=== PATIENT | male | born 1960 | race Hispanic/Latino ===

== ENCOUNTER 2022-03-13 21:35 | Inpatient (IN) | payer OTHER ==
[~2022-03-13] VITALS: Ht 160 cm; Wt 69.8 kg
[2022-03-13 22:35] LABS: BASOPHILS % (AUTO) 0.2 % (0.0-5.0); EOSINOPHILS % (AUTO) 1.9 % (0.0-8.0); HEMATOCRIT 30.3 % (42-54); LYMPHOCYTES % (AUTO) 8.1 % (21.0-51.0); MEAN CORPUSCULAR HEMOGLOBIN 30.1 pg (27.0-33.0); MEAN CORPUSCULAR HGB CONC 34.3 g/dL (32.0-36.0); MEAN CORPUSCULAR VOLUME 87.6 fL (79-99); MONOCYTES % (AUTO) 9.6 % (3.0-13.0); NEUTROPHILS % (AUTO) 79.8 % (40.0-77.0); PLATELET COUNT (AUTO) 206 K/uL (130-400); RED BLOOD CELL COUNT(AUTO) 3.46 MIL/uL (4.50-6.20); RED CELL DISTRIBUTION WIDTH 13.3 % (11.0-15.5); WHITE BLOOD COUNT (AUTO) 9.9 K/uL (4.8-10.8)
[2022-03-13 22:45] LABS: CREATININE 1.3 mg/dL (0.5-1.5); POTASSIUM 5.6 mmol/L (3.5-5.1)
[2022-03-13 22:50] LABS: ALBUMIN 2.9 g/dL (3.5-5.0); TOTAL PROTEIN, SERUM 6.8 g/dL (6.0-8.3)
[2022-03-13 23:43] LABS: APPEARANCE,URINE CLEAR (CLEAR); BILIRUBIN,URINE NEGATIVE (NEGATIVE); COLOR,URINE YELLOW (YELLOW); GLUCOSE, URINE (UA) NEGATIVE (NEGATIVE); KETONES,URINE NEGATIVE (NEGATIVE); LEUKOCYTE ESTERASE ,URINE NEGATIVE (NEGATIVE); NITRATE,URINE NEGATIVE (NEGATIVE); OCCULT BLOOD,URINE TRACE-INTACT (NEGATIVE); PROTEIN,URINE 30 mg/dL (NEGATIVE); UROBILINOGEN,URINE 0.2 mg/dL (0.2-1.0)
[2022-03-14] MEDS ORDERED: ZOSYN 3.375GM +NS 50ML IV SCH
[2022-03-14 00:18] LABS: BACTERIA,URINE None Seen /HPF (None Seen); RBC,URINE 0-1 /HPF (0-1); SQUAMOUS EPITHELIAL CELL,UR Rare /HPF (0-2); WBC,URINE None Seen /HPF (0-1)
[2022-03-14] MEDS ORDERED: ONDANSETRON 4MG INJ ONE (00:30)
[2022-03-14] MEDS ORDERED: MORPHINE 4 MG SYG ONE (00:30)
[2022-03-14 02:10] VITALS: BP 129/81
[2022-03-14] MEDS ORDERED: VANCOMYCIN PROTOCOL PER PHARMACY IV PRN (02:30)
[2022-03-14] MEDS ORDERED: ACETAMINOPHEN 325 MG TAB PO PRN (02:30)
[2022-03-14] MEDS ORDERED: VANCOMYCIN 1G/250ML KIT 250 ML IV SCH (02:30)
[2022-03-14] MEDS ORDERED: ONDANSETRON 4MG INJ IV PRN (02:30)
[2022-03-14] MEDS: CEFEPIME HCL 2 GM VIAL IVP SCH ×2 (03:26→15:50)
[2022-03-14] MEDS: 0.9%NACL 1000ML 1,000 ML IV SCH ×2 (03:26→15:50)
[2022-03-14] MEDS: MORPHINE 4 MG SYG IV PRN (05:30)
[2022-03-14 05:57] LABS: BASOPHILS % (AUTO) 0.3 % (0.0-5.0); EOSINOPHILS % (AUTO) 2.2 % (0.0-8.0); HEMATOCRIT 28.4 % (42-54); LYMPHOCYTES % (AUTO) 17.5 % (21.0-51.0); MEAN CORPUSCULAR HEMOGLOBIN 29.8 pg (27.0-33.0); MEAN CORPUSCULAR HGB CONC 33.5 g/dL (32.0-36.0); MONOCYTES % (AUTO) 10.2 % (3.0-13.0); NEUTROPHILS % (AUTO) 69.1 % (40.0-77.0); PLATELET COUNT (AUTO) 198 K/uL (130-400); RED BLOOD CELL COUNT(AUTO) 3.19 MIL/uL (4.50-6.20); RED CELL DISTRIBUTION WIDTH 13.2 % (11.0-15.5); WHITE BLOOD COUNT (AUTO) 9.8 K/uL (4.8-10.8)
[2022-03-14 06:04] LABS: CREATININE 1.3 mg/dL (0.5-1.5); MAGNESIUM 1.5 mg/dL (1.80-2.40); PHOSPHORUS 3.9 mg/dL (2.5-4.9); POTASSIUM 4.8 mmol/L (3.5-5.1)
[2022-03-14 06:10] LABS: HEMOGLOBIN A1C 12.9 % (4.0-6.0)
[2022-03-14] MEDS ORDERED: MAGNESIUM 2GM PREMIX 50ML 50 ML IV PRN (06:30)
[2022-03-14 07:00] VITALS: BP 112/61
[2022-03-14] MEDS ORDERED: GABA300S PO (08:38)
[2022-03-14] MEDS ORDERED: PIOG15TA66 PO (08:39)
[2022-03-14] MEDS ORDERED: METF-446 PO (08:40)
[2022-03-14] MEDS ORDERED: AEC81 PO (08:40)
[2022-03-14] MEDS: FAMOTIDINE 20MG VIAL IV SCH (09:54)
[2022-03-14] MEDS: MORPHINE 2 MG SYG IV PRN ×2 (10:11→21:37)
[2022-03-14 11:00] VITALS: BP 140/82
[2022-03-14 15:00] VITALS: BP 146/81
[2022-03-14] MEDS: GABAPENTIN 300 MG CAPSULE PO SCH ×2 (15:51→21:27)
[2022-03-14 20:20] VITALS: BP 143/77
[2022-03-14] MEDS: VANCOMYCIN 1G/250ML KIT 250 ML IV SCH (21:27)
[2022-03-15] VITALS (20 sets, daily range): BP systolic 118–149; BP diastolic 62–82
[2022-03-15] MEDS: MORPHINE 4 MG SYG IV PRN ×2 (02:56→20:39)
[2022-03-15] MEDS: CEFEPIME HCL 2 GM VIAL IVP SCH ×2 (04:16→13:46)
[2022-03-15 05:14] LABS: BASOPHILS % (AUTO) 0.4 % (0.0-5.0); EOSINOPHILS % (AUTO) 2.1 % (0.0-8.0); HEMATOCRIT 29.9 % (42-54); LYMPHOCYTES % (AUTO) 10.6 % (21.0-51.0); MEAN CORPUSCULAR HGB CONC 33.8 g/dL (32.0-36.0); MEAN CORPUSCULAR VOLUME 88.7 fL (79-99); MONOCYTES % (AUTO) 9.3 % (3.0-13.0); NEUTROPHILS % (AUTO) 77.2 % (40.0-77.0); PLATELET COUNT (AUTO) 214 K/uL (130-400); RED BLOOD CELL COUNT(AUTO) 3.37 MIL/uL (4.50-6.20); RED CELL DISTRIBUTION WIDTH 13.2 % (11.0-15.5); WHITE BLOOD COUNT (AUTO) 9.6 K/uL (4.8-10.8)
[2022-03-15 05:32] LABS: INR 1.06 (0.85-1.15); PROTHROMBIN TIME 11.5 SEC (9.6-11.6)
[2022-03-15 05:33] LABS: CREATININE 1.2 mg/dL (0.5-1.5)
[2022-03-15] MEDS: ASPIRIN 81 MG EC TAB PO SCH (09:00)
[2022-03-15] MEDS: FAMOTIDINE 20MG VIAL IV SCH (09:00)
[2022-03-15] MEDS: GABAPENTIN 300 MG CAPSULE PO SCH ×3 (09:00→20:31)
[2022-03-15] MEDS ORDERED: LIDOCAINE HCL 400MG/20ML VIAL ONE (09:09)
[2022-03-15] MEDS ORDERED: BUPIVACAINE/PF 0.5% 10ML VIAL ONE (09:09)
[2022-03-15] MEDS ORDERED: PROPOFOL 10 MG/ML 20ML VIAL IV ONE (09:18)
[2022-03-15] MEDS ORDERED: MIDAZOLAM HCL 1 MG/ML 2ML VIAL ONE (09:18)
[2022-03-15] MEDS ORDERED: FENTANYL CITRATE PF 50 MCG/1 ML 2ML VIAL ONE ×2 (09:18→10:46)
[2022-03-15] MEDS ORDERED: LIDOCAINE HCL 1% 10 ML VIAL ONE (09:22)
[2022-03-15] MEDS: 0.9%NACL 1000ML 1,000 ML IV SCH (11:20)
[2022-03-15] MEDS ORDERED: INSULIN HUMULIN R 100 UNIT/ML 3ML SQ SCH (12:00)
[2022-03-15] MEDS: VANCOMYCIN 1G/250ML KIT 250 ML IV SCH (20:30)
[2022-03-15] MEDS: INSULIN HUMULIN R 100 UNIT/ML 3ML SQ SCH (22:19)
[2022-03-16] MEDS: MORPHINE 4 MG SYG IV PRN ×2 (02:43→08:18)
[2022-03-16] MEDS: CEFEPIME HCL 2 GM VIAL IVP SCH ×2 (02:46→13:23)
[2022-03-16 03:41] VITALS: BP 132/76
[2022-03-16] MEDS: INSULIN HUMULIN R 100 UNIT/ML 3ML SQ SCH ×4 (06:19→20:18)
[2022-03-16 08:00] VITALS: BP 139/85
[2022-03-16] MEDS: FAMOTIDINE 20MG VIAL IV SCH (08:03)
[2022-03-16] MEDS: GABAPENTIN 300 MG CAPSULE PO SCH ×3 (08:03→20:10)
[2022-03-16] MEDS: ASPIRIN 81 MG EC TAB PO SCH (08:04)
[2022-03-16 09:19] LABS: HEMATOCRIT 30.8 % (42-54); MEAN CORPUSCULAR HEMOGLOBIN 29.7 pg (27.0-33.0); MEAN CORPUSCULAR HGB CONC 34.1 g/dL (32.0-36.0); RED BLOOD CELL COUNT(AUTO) 3.54 MIL/uL (4.50-6.20); RED CELL DISTRIBUTION WIDTH 12.8 % (11.0-15.5); WHITE BLOOD COUNT (AUTO) 10.4 K/uL (4.8-10.8)
[2022-03-16 09:22] LABS: ALBUMIN 2.4 g/dL (3.5-5.0); POTASSIUM 4.6 mmol/L (3.5-5.1)
[2022-03-16] MEDS: KETOROLAC 15MG/ML VIAL (15MG/ML) IV PRN (10:58)
[2022-03-16] MEDS: HYDROMORPHONE 0.5 MG SYG (0.5MG/0.5ML) IVP PRN ×2 (11:09→20:10)
[2022-03-16 11:19] VITALS: BP 142/81
[2022-03-16] MEDS ORDERED: INSULIN HUMULIN 70/30 100 UNIT/ML 3ML SQ SCH (13:00)
[2022-03-16] MEDS ORDERED: DIPH,PERTUSS(ACELL),TET VAC/PF 0.5 ML VIAL IM SCH (13:30)
[2022-03-16] MEDS: INSULIN GLARGINE 100 UNITS/ML 10 ML VIAL SQ SCH (13:34)
[2022-03-16 16:00] VITALS: BP 132/73
[2022-03-16] MEDS ORDERED: CHLORPROMAZINE HCL 25 MG/ML 1ML AMP IM PRN (16:30)
[2022-03-16] MEDS: VANCOMYCIN 1G/250ML KIT 250 ML IV SCH (20:09)
[2022-03-16 20:19] VITALS: BP 133/76
[2022-03-16] MEDS ORDERED: INSULIN GLARGINE 100 UNITS/ML 10 ML VIAL SQ SCH (21:00)
[2022-03-16 23:19] VITALS: BP 130/68
[2022-03-17] MEDS: CEFEPIME HCL 2 GM VIAL IVP SCH ×2 (02:12→13:19)
[2022-03-17 02:34] VITALS: BP 135/65
[2022-03-17] MEDS: KETOROLAC 15MG/ML VIAL (15MG/ML) IV PRN ×2 (05:38→20:56)
[2022-03-17] MEDS: INSULIN HUMULIN R 100 UNIT/ML 3ML SQ SCH ×6 (06:05→21:55)
[2022-03-17 08:00] VITALS: BP 133/78
[2022-03-17] MEDS: ASPIRIN 81 MG EC TAB PO SCH (10:12)
[2022-03-17] MEDS: FAMOTIDINE 20MG VIAL IV SCH (10:12)
[2022-03-17] MEDS: GABAPENTIN 300 MG CAPSULE PO SCH ×3 (10:12→20:56)
[2022-03-17 11:41] VITALS: BP 127/68
[2022-03-17] MEDS: INSULIN GLARGINE 100 UNITS/ML 10 ML VIAL SQ SCH (13:21)
[2022-03-17] MEDS: AMOXICILLIN 500 MG CAPSULE PO SCH ×2 (14:54→20:56)
[2022-03-17 16:00] VITALS: BP 137/75
[2022-03-17 20:00] VITALS: BP 140/78
[2022-03-18] VITALS: BP 125/71
[2022-03-18 04:00] VITALS: BP 137/77
[2022-03-18] MEDS: INSULIN HUMULIN R 100 UNIT/ML 3ML SQ SCH ×4 (05:40→14:05)
[2022-03-18 06:13] LABS: HEMATOCRIT 29.3 % (42-54); MEAN CORPUSCULAR HEMOGLOBIN 29.8 pg (27.0-33.0); MEAN CORPUSCULAR HGB CONC 34.5 g/dL (32.0-36.0); MEAN CORPUSCULAR VOLUME 86.4 fL (79-99); RED BLOOD CELL COUNT(AUTO) 3.39 MIL/uL (4.50-6.20); RED CELL DISTRIBUTION WIDTH 12.7 % (11.0-15.5); WHITE BLOOD COUNT (AUTO) 10.1 K/uL (4.8-10.8)
[2022-03-18 06:26] LABS: CREATININE 1.2 mg/dL (0.5-1.5); POTASSIUM 4.6 mmol/L (3.5-5.1)
[2022-03-18] MEDS: AMOXICILLIN 500 MG CAPSULE PO SCH ×2 (06:37→14:05)
[2022-03-18 08:00] VITALS: BP 147/81
[2022-03-18] MEDS ORDERED: AMOX500T2 PO (08:38)
[2022-03-18] MEDS: ASPIRIN 81 MG EC TAB PO SCH (08:54)
[2022-03-18] MEDS: GABAPENTIN 300 MG CAPSULE PO SCH ×2 (08:54→14:05)
[2022-03-18] MEDS: FAMOTIDINE 20MG VIAL IV SCH (08:54)
[2022-03-18] MEDS: KETOROLAC 15MG/ML VIAL (15MG/ML) IV PRN (10:36)
[2022-03-18] MEDS: INSULIN GLARGINE 100 UNITS/ML 10 ML VIAL SQ SCH (14:06)
== END 2022-03-18 16:00 | disposition home or self-care (01) | DRG 239 ==
LOC: EDH 21:35 → EDHIP 21:36 → 3CH 03-14 02:10
PROVIDERS: ADMIT Hospitalist; ATTEND Hospitalist
PROC: 0JBR0ZZ Excision of Left Foot Subcutaneous Tissue and Fascia, Open Approach (ICD-10-PCS; 2022-03-15)
PROC: 0Y6N0ZC Detachment at Left Foot, Partial 3rd Ray, Open Approach (ICD-10-PCS; 2022-03-15)
PROC: 0Y6N0ZB Detachment at Left Foot, Partial 2nd Ray, Open Approach (ICD-10-PCS; principal; 2022-03-15 10:08)
DX: E11.51 Type 2 diabetes mellitus with diabetic peripheral angiopathy without gangrene (principal); M72.6 Necrotizing fasciitis; L02.612 Cutaneous abscess of left foot; Z20.822 Contact with and (suspected) exposure to COVID-19; M86.8X7 Other osteomyelitis, ankle and foot; L02.611 Cutaneous abscess of right foot; E11.69 Type 2 diabetes mellitus with other specified complication; E11.621 Type 2 diabetes mellitus with foot ulcer; E87.5 Hyperkalemia; E11.65 Type 2 diabetes mellitus with hyperglycemia; I10 Essential (primary) hypertension; L97.529 Non-pressure chronic ulcer of other part of left foot with unspecified severity; Z79.84 Long term (current) use of oral hypoglycemic drugs; Z89.432 Acquired absence of left foot; Z91.19 Patient's noncompliance with other medical treatment and regimen
CPT/HCPCS: 36415; 73630; 73718; 80048; 80053; 80061; 80202; 81001; 82040; 82948; 83036; 83605; 83735; 84100; 84145; 85025; 85027; 85610; 85730; 87040; 87070; 87076; 87205; 87635; 90715; 93005; 93925; 97039; G0378; J0692; J1170; J1815; J1885; J2250; J2270; J2405; J2543; J2704; J3010; J3370; J3475; J3490; J7030